=== PATIENT | male | born 1960 ===

== ENCOUNTER 2023-02-28 16:41 | Inpatient (IN) | payer OTHER ==
[~2023-02-28] VITALS: Ht 170.2 cm; Wt 91.6 kg
[2023-03-01] MEDS ORDERED: PROPRANOLOL HCL60 M1 PO (08:47)
[2023-03-01] MEDS ORDERED: LOVAZA1 GM PO (08:48)
[2023-03-01] MEDS ORDERED: SIMVASTATIN10 MG PO (08:48)
[2023-03-01] MEDS ORDERED: CENTRUM MEN'S1 EACH PO (08:49)
[2023-03-08] MEDS ORDERED: INTEGRA PLUS C1 EACH PO (06:30)
[2023-03-08] MEDS ORDERED: OXYC1TAB9 PO (06:30)
[2023-03-08] MEDS ORDERED: BACTRIM DS TAB1 EACH PO (06:30)
[2023-03-08] MEDS ORDERED: XARELTO10 MG PO (06:30)
== END 2023-03-08 17:29 | DRG 470 ==
LOC: SURG 03-06 08:00 → O/R 03-06 10:13 → SURH 03-06 10:13 → SURG 03-06 11:45 → SURH 03-06 15:57
PROVIDERS: ADMIT Orthopaedic Surgery Sports Medicine; ATTEND Orthopaedic Surgery Sports Medicine
PROC: 0SRC0J9 Replacement of Right Knee Joint with Synthetic Substitute, Cemented, Open Approach (ICD-10-PCS; principal; 2023-03-06 11:45)
DX: M17.11 Unilateral primary osteoarthritis, right knee (principal); I11.9 Hypertensive heart disease without heart failure